=== PATIENT | male | born 1935 | race Caucasian/White ===

== ENCOUNTER 2018-05-25 11:40 | Outpatient (REF) | payer MEDICARE, BC, SELFPAY ==
[2018-05-25 20:10] LABS: HCT 44.9 % (40.0-50.0); HGB 14.5 g/dL (13.5-17.5); Mean Corp. HGB Concentration 32.3 g/dL (32.0-36.0); Mean Corpuscular Hemoglobin 30.3 pg (27.0-33.0); Mean Corpuscular Volume 93.9 fL (80-95); Platelet Count 203 x1000/uL (130-400); RBC 4.78 m/cumm (4.50-6.00); RBC Distribution Width 13.7 % (11.8-14.1); White Blood Cell Count 6.71 k/cumm (4.4-10.8)
[2018-05-25 20:18] LABS: COMMENT (LAB VIEW ONLY) 89.09 mg/dL; Microalb ug/mg Crea 5.7 ug/mg Cr
[2018-05-25 20:23] LABS: ALT 22 U/L (12-78); AST 19 U/L (15-37); Albumin 3.2 g/dL (3.4-5.0); Alkaline Phosphatase 85 U/L (46-116); Anion Gap 7.7 mmol/L (3-11); BUN 28 mg/dL (7-18); CO2 30.3 mmol/L (21.0-32.0); CREATININE 1.22 mg/dL (0.70-1.30); Calcium 8.2 mg/dL (8.5-10.1); Chloride 102 mmol/L (98-107); Estimated GFR 57.15 (mL/min/1.73m2); Glucose 152 mg/dL (70-100); Potassium 3.9 mmol/L (3.5-5.1); Sodium 140 mmol/L (136-145); TSH 1.06 uIU/mL (0.358-3.74); Total Protein 6.6 g/dL (6.4-8.2)
[2018-05-25 20:54] LABS: Bilirubin, Total 0.6 mg/dL (0.2-1.0)
== END 2018-05-25 11:41 ==
LOC: NCHCN 11:40
PROVIDERS: PCP Internal Medicine; Visit Provider Internal Medicine
DX: E11.9 Type 2 diabetes mellitus without complications (principal); R63.4 Abnormal weight loss; I48.91 Unspecified atrial fibrillation; M10.9 Gout, unspecified
CPT/HCPCS: 80053; 85027; 82043; 82570; 84443

== ENCOUNTER 2019-06-07 15:25 | Outpatient (REF) | payer MEDICARE, BC, SELFPAY ==
[2019-06-07 19:10] LABS: HCT 46.6 % (40.0-50.0); HGB 14.5 g/dL (13.5-17.5); Mean Corp. HGB Concentration 31.1 g/dL (32.0-36.0); Mean Corpuscular Hemoglobin 28.2 pg (27.0-33.0); Mean Corpuscular Volume 90.7 fL (80-95); Platelet Count 175 x1000/uL (130-400); RBC 5.14 m/cumm (4.50-6.00); RBC Distribution Width 14.9 % (11.8-14.1); White Blood Cell Count 6.59 k/cumm (4.4-10.8)
[2019-06-07 19:24] LABS: Anion Gap 7.6 mmol/L (3-11); BUN 22 mg/dL (7-18); CO2 28.4 mmol/L (21.0-32.0); CREATININE 1.05 mg/dL (0.70-1.30); Calcium 8.5 mg/dL (8.5-10.1); Chloride 108 mmol/L (98-107); Creatine Kinase 233 U/L (39-308); Glucose 109 mg/dL (70-100); Potassium 4.4 mmol/L (3.5-5.1); Sodium 144 mmol/L (136-145); TSH 1.23 uIU/mL (0.36-3.74); Uric Acid 2.9 mg/dL (3.5-7.2)
== END 2019-06-07 15:45 ==
LOC: NCHCN 15:25
PROVIDERS: PCP Internal Medicine; Visit Provider Internal Medicine
DX: E11.9 Type 2 diabetes mellitus without complications (principal); I48.91 Unspecified atrial fibrillation; I83.009 Varicose veins of unspecified lower extremity with ulcer of unspecified site; E66.9 Obesity, unspecified
CPT/HCPCS: 80048; 82550; 85027; 84443; 84550

== ENCOUNTER 2021-04-01 13:34 | Outpatient (REF) | payer MEDICARE, BC, SELFPAY ==
[2021-04-01 18:32] LABS: HGB 14.9 g/dL (13.5-17.5); MCH 30.2 pg (27.0-33.0); MCHC 32.4 % (32.0-36.0); MCV 93.1 fL (80-95); MPV 9.8 fL (8.0-11.0); Platelet Count 158 10^3/uL (130-400); RBC 4.94 10^6/uL (4.36-5.78); RDW 13.1 % (11.8-14.1); RDW-SD 44.8 fL; WBC 6.76 10^3/uL (4.4-10.8)
== END 2021-04-01 13:35 | disposition home or self-care (01) ==
LOC: NCHCN 13:34
PROVIDERS: PCP Internal Medicine; Visit Provider Internal Medicine
DX: K27.9 Peptic ulcer, site unspecified, unspecified as acute or chronic, without hemorrhage or perforation (principal)
CPT/HCPCS: 85027

== ENCOUNTER 2022-05-18 18:11 | Outpatient (REF) | payer MEDICARE, BC, SELFPAY ==
[2022-05-18 20:16] LABS: HCT 48.7 % (40.0-50.0); HGB 15.5 g/dL (13.5-17.5); MCH 29.1 pg (27.0-33.0); MCHC 31.8 % (32.0-36.0); MCV 91 fL (80-95); MPV 10.5 fL (8.0-11.0); Platelet Count 154 10^3/uL (130-400); RBC 5.33 10^6/uL (4.36-5.78); RDW 13.7 % (11.8-14.1); RDW-SD 46.2 fL; WBC 7.33 10^3/uL (4.4-10.8)
[2022-05-18 20:31] LABS: ALT 20 U/L (16-63); AST 20 U/L (15-37); Albumin 3.5 g/dL (3.4-5.0); Alkaline Phosphatase 100 U/L (46-116); Anion Gap 4.6 mmol/L (3-11); BUN 22 mg/dL (7-18); Bilirubin, Total 0.6 mg/dL (0.2-1.0); CO2 31.4 mmol/L (21.0-32.0); CREATININE 1.1 mg/dL (0.70-1.30); Calcium 8.6 mg/dL (8.5-10.1); Chloride 105 mmol/L (98-107); Glucose 131 mg/dL (74-106); NT-proBNP 1164 pg/mL (<300); Potassium 3.9 mmol/L (3.5-5.1); Sodium 141 mmol/L (136-145); TSH 1.35 uIU/mL (0.36-3.74); Total Protein 7.4 g/dL (6.4-8.2)
== END 2022-05-18 18:12 | disposition home or self-care (01) ==
LOC: NCHCN 18:11
PROVIDERS: PCP Internal Medicine; Visit Provider Internal Medicine
DX: E11.8 Type 2 diabetes mellitus with unspecified complications (principal); I10 Essential (primary) hypertension; R06.2 Wheezing; G47.33 Obstructive sleep apnea (adult) (pediatric); Z79.4 Long term (current) use of insulin
CPT/HCPCS: 80053; 85027; 83880; 84443

== ENCOUNTER 2023-05-29 13:39 | Outpatient (REF) | payer MEDICARE, BC, SELFPAY ==
--- OUTSIDE RECORDS SUMMARY | 2023-05-29 13:42 | XMS_ITS | Continuity of Care Document ---
Author Name Unknown Organization [facility] Address [address] [place] [address] Care Team Providers Care Fire Support Specialist Name Role Phone [place] HCDenilson Primary Care Physician Encounter [facility] [id number] Date(s): 03/26/23 - 03/26/[address] [address] Encounter Diagnosis Dizziness(Discharge Diagnosis) - 03/26/23 Discharge Disposition: Home or Self Care Attending Physician: Daphney Og MD Admitting Physician: Daphney Og MD Referring Physician: Daphney Og MD Allergies, Adverse Reactions, Alerts Substance Reaction Severity Status codeine Unknown Active bacitracin Skin rash Moderate Active penicillins Unknown Active Medications allopurinol 200 mg oral tablet 200 mg = 1 tab, Oral, Daily, # 30 tab, 0 Refill(s) Start Date: 03/26/23 Status: Ordered atenolol 25 mg oral tablet 25 mg = 1 tab, Oral, Daily, # 30 tab, 0 Refill(s) Start Date: 03/26/23 Status: Ordered atorvastatin 20 mg oral tablet 20 mg = 1 tab, Oral, Daily, # 90 tab, 0 Refill(s) Start Date: 03/26/23 Status: Ordered Basaglar KwikPen 0 Refill(s) Start Date: 03/26/23 Status: Ordered Dexilant 60 mg oral delayed release capsule 60 mg = 1 cap, Oral, Daily, # 30 cap, 0 Refill(s) Start Date: 03/26/23 Status: Ordered finasteride 5 mg oral tablet 5 mg = 1 tab, Oral, Daily, # 30 tab, 0 Refill(s) Start Date: 03/26/23 Status: Ordered losartan 100 mg oral tablet 100 mg = 1 tab, Oral, Daily, # 90 tab, 0 Refill(s) Start Date: 03/26/23 Status: Ordered meclizine 25 mg oral tablet 25 mg = 1 tab, Oral, every 6 hr, PRN as needed for dizziness, X 14 days, # 30 tab, 1 Refill(s), 04/23/23 15:54:00 EDT, Pharmacy: [id number], 175.26, cm, 03/26/23 14:46:00 EDT, Height/LengthDosing, 106, kg, 03/26/23 14:46:00 EDT, Weight Dosing Start Date: 03/26/23 Stop Date: 04/23/23 Status: Ordered NovoLOG 100 units/mL injectable solution 0 Refill(s) Start Date: 03/26/23 Status: Ordered triamcinolone 0.025% topical cream 1 barak, Topical, BID, X 14 days, # 15 g, 0 Refill(s), 04/09/23 14:50:00 EDT Start Date: 03/26/23 Stop Date: 04/09/23 Status: Ordered Xarelto 2.5 mg oral tablet 2.5 mg = 1 tab, Oral, BID, 0 Refill(s) Start Date: 03/26/23 Status: Ordered Mental Status 03/26/23 Eye Opening Response [place] Spontaneous ly Best Verbal Response Emily Oriented Best Motor Response Emily Obeys comman ds Emily Coma Score 15 Results Laboratory List Name Date Automated Diff 03/26/23 CBC w/ Diff 03/26/23 Comprehensive Metabolic Panel 03/26/23 Most recent to oldest [Reference Range]: 1 WBC [5.0-10.0 x10^3/mcL] 7.2 x10^3/mcL (03/26/23 2:56 PM) RBC [4.6-6.0 x10^6/mcL] 5.0 x10^6/mcL (03/26/23 2:56 PM) Neutro Auto [40.0-75.0 %] 60.5 % (03/26/23 2:56 PM) Lymph Auto [20.0-50.0 %] 26.9 % (03/26/23 2:56 PM) [place] Auto [2.0-15.0 %] 9.5 % (03/26/23 2:56 PM) Basophil Auto [0.0-1.0 %] 0.8 % (03/26/23 2:56 PM) BUN [7-18 mg/dL] 19 mg/dL *HI* (03/26/23 2:56 PM) Glucose Level [74-106 mg/dL] 173 mg/dL *HI* (03/26/23 2:56 PM) Potassium Level [3.5-5.1 mmol/L] 4.0 mmo l/L (03/26/23 2:56 PM) MCV [80.0-96.0 fL] 94.0 fL (03/26/23 2:56 PM) AST [15-37 unit/L] 17 unit/L (03/26/23 2:56 PM) ALT [16-63 unit/L] 19 unit/L (03/26/23 2:56 PM) MCHC [31.0-35.0 g/dL] 32.7 g/dL (03/26/23 2:56 PM) Sodium Level [136-145 mmol/L] 142 mmol/L (03/26/23 2:56 PM) Hct [41.0-51.0 %] 47.1 % (03/26/23 2:56 PM) Calcium Level [8.5-10.1 mg/dL] 8.8 mg/dL (03/26/23 2:56 PM) Albumin Level [3.4-5.0 g/dL] 3.5 g/dL (03/26/23 2:56 PM) Protein Total [6.4-8.2 g/dL] 7.7 g/dL (03/26/23 2:56 PM) MCH [26.0-32.0 pg] 30.7 pg (03/26/23 2:56 PM) Neutro Absolute 4.4 x10^3/mcL *NA* (03/26/23 2:56 PM) Bilirubin Total [0.2-1.0 mg/dL] 0.7 mg/d L (03/26/23 2:56 PM) Hgb [14.0-18.0 g/dL] 15.4 g/dL (03/26/23 2:56 PM) Alk Phos [46-146 unit/L] 103 unit/L (03/26/23 2:56 PM) Platelets [130-450 x10^3/mcL] 141 x10^3/ mcL (03/26/23 2:56 PM) CO2 [21-32 mmol/L] 31 mmol/L (03/26/23 2:56 PM) eGFR Non-AA [>=60] 65 (03/26/23 2:56 PM) eGFR AA [>=60] 65 (03/26/23 2:56 PM) Chloride Level [98-107 mmol/L] 105 mmol/ L (03/26/23 2:56 PM) RDW-CV [11.5-14.5 %] 13.7 % (03/26/23 2:56 PM) Imm Gran Auto [0.0-0.9 %] 0.6 % (03/26/23 2:56 PM) Slide Review Not Indicated (03/26/23 2:56 PM) Creatinine Level [0.70-1.30 mg/dL] 1.11 mg/dL (03/26/23 2:56 PM) Eos, Auto [1.0-6.0 %] 1.7 % (03/26/23 2:56 PM) Vital Signs Most recent to oldest [Reference Range]: 1 2 3 Temperature Temporal Artery [36-38 Deg C] 36.2 Deg C (03/26/23 2:37 PM) Peripheral Pulse Rate [60-100 bpm] 80 bpm (03/26/23 3:48 PM) 69 bpm (03/26/23 3:25 PM) 70 bpm (03/26/23 2:37 PM) Heart Rate Monitored [60-100 bpm] 56 bpm *LOW* (03/26/23 3:48 PM) 69 bpm (03/26/23 3:25 PM) 68 bpm (03/26/23 3:06 PM) Respiratory Rate [12-24 br/min] 12 br/min (03/26/23 3:48 PM) 18 br/min (03/26/23 3:25 PM) 10 br/min *LOW* (03/26/23 3:06 PM) Blood Pressure [90-140/60-90 mmHg] 146/80mmHg *HI* (03/26/23 3:48 PM) 145/82mmHg *HI* (03/26/23 3:25 PM) 163/87mmHg *HI* (03/26/23 3:06 PM) Weight 106.00 kg (03/26/23 2:37 PM) Weight Dosing 106.00 kg (03/26/23 2:46 PM) Height 175.260 cm (03/26/23 2:37 PM) Height/Length Dosing 175.260 cm (03/26/23 2:46 PM) Body Mass Index 35.000 kg/m2 (03/26/23 2:37 PM) Social History Social History Type Response Tobacco Never tobacco user T obacco Use:. Sex Male Hospital Discharge Instructions Patient Education 03/26/2023 14:55:07 Dizziness Dizziness Dizziness is a common problem. It is a feeling of unsteadiness or light- headedness. You may feel like you are about to faint. Dizziness can lead to injury if you stumble or fall. Anyone can become dizzy, but dizziness is more common in older adults. This condition can be caused by a number of things, including medicines, dehydration, or illness. Follow these instructions at home: Eating and drinking ??? Drink enough fluid to keep your urine pale yellow. This helps to keep you from becoming dehydrated. Try to drink more clear fluids, such as water. ??? Do not drink alcohol. ??? Limit your caffeine intake if told to do so by your health care provider. Check ingredients andnutrition facts to see if a food or beverage contains caffeine. ??? Limit your salt (sodium) intake if told to do so by your health care provider. Check ingredients and nutrition facts to see if a food or beverage contains sodium. Activity ??? Avoid making quick movements. ??? Rise slowly from chairs and steady yourself until you feel okay. ??? In the morning, first sit up on the side of the bed. When you feel okay, stand slowly while youhold onto something until you know that your balance is good. ??? If you need to draw machine operator one place for a long time, move your legs often. Tighten and relax the muscles in your legs while you are standing. ??? Do not drive or use machinery if you feel dizzy. ??? Avoid bending down if you feel dizzy. Place items in your home so that they are easy for you toreach without leaning over. Lifestyle ??? Do not use any products that contain nicotine or tobacco. These products include cigarettes, chewing tobacco, and vaping devices, such as e-cigarettes. If you need help quitting, ask your health care provider. ??? Try to reduce your stress level by using methods such as yoga or meditation. Talk with your health care provider if you need help to manage your stress. General instructions ??? Watch your dizziness for any changes. ??? Take szat-osv-psuxpty and prescription medicines only as told by your health care provider. Talk with your health care provider if you think that your dizziness is caused by a medicine that you are taking. ??? Tell a friend or a family member that you are feeling dizzy. If he or she notices any changes in your behavior, have this person call your health care provider. ??? Keep all follow-up visits. This is important. Contact a health care provider if: ??? Your dizziness does not go away or you have new symptoms. ??? Your dizziness or light-headedness gets worse. ??? You feel nauseous. ??? You have reduced hearing. ??? You have a fever. ??? You have neck pain or a stiff neck. ??? Your dizziness leads to an injury or a fall. Get help right away if: ??? You vomit or have diarrhea and are unable to eat or drink anything. ??? You have problems talking, walking, swallowing, or using your arms, hands, or legs. ??? You feel generally weak. ??? You have any bleeding. ??? You are not thinking clearly or you have trouble forming sentences. It may take a friend or family member to notice this. ??? You have chest pain, abdominal pain, shortness of breath, or sweating. ??? Your vision changes or you develop a severe headache. These symptoms may represent a serious problem that is an emergency. Do not wait to see if the symptoms will go away. Get medical help right away. Call your local emergency services (911 in the [place] Do not drive yourself to the hospital. Summary ??? Dizziness is a feeling of unsteadiness or light-headedness. This condition can be caused by a number of things, including medicines, dehydration, or illness. ??? Anyone can become dizzy, but dizziness is more common in older adults. ??? Drink enough fluid to keep your urine pale yellow. Do not drink alcohol. ??? Avoid making quick movements if you feel dizzy. Monitor your dizziness for any changes. This information is not intended to replace advice given to you by your health care provider. Make sure you discuss any questions you have with your health care provider. Document Revised: 09/13/2021 Document Reviewed: 09/13/2021 Elsevier Patient Education ?? 2021 Only-apartments. Follow Up Care 03/26/2023 14:37:20 With:Follow up with primary care provider Address: When:1 to 2 weeks Physician Emergency department Note * Daphney Og MD: PERFORM Event Display: ED Note Physician Authored Date: [id number] MACARIO NAYLOR :1935 Age:87 years Sex:Male Visit Date:03/26/2023 Primary Care Physician: [facility], Denilson Iniguez MD Basic Information Time Seen: Daphney Og MD / 03/26/2023 14:41 Chief Complaint Pt sttaes he has had dizziness for a week. ??States he thought it was better fri and sat but is uchworse today History Of Present Illness: Patient had dizziness that started about 9 days ago went away on Monday and Monday??but now todayis worse??patient was thinking he had an inner ear infection.?? No ear nose or throat pain no chestpain no cough no nausea no vomiting no extremity edema no skin rashes no headache??no fever no chills. 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 Patient has a history of atrial fibrillation and is on Xarelto. 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. Review of Systems: see hpi for ros Physical Exam Vitals & Measurements T:??36.2?C ??(Temporal Artery)?? HR:??80??(Peripheral)?? HR:??56??(Monitored)?? RR:??12?? BP:??146/80?? SpO2:??95%?? HT:??175.260??cm?? WT:??106.00??kg?? BMI:??35.000?? Pain Score:??0?? O2 Therapy:??Room air?? General: Alert and oriented, well nourished,?No??acute distress Eye: PER?Normal??conjunctiva,??No??scleral icterus HENT: Normocephalic,??nontraumatic??Normal hearing Neck: Supple, non-tender,??No??lymphadenopathy Lungs: Clear to auscultation,?Non-labored?? respiration Heart:?Normal?? rate,?Regular??rhythm,?No??murmur,?No??gallop,?No??edema Chest: wall excursion wnl no abnormal movements no obvious deformities Musculoskeletal:?Normal?? range of motion and strength,?No??tenderness,?No??swelling Skin: Skin is warm, dry and pink,?No??rashes,?No??lesions Neurologic: Awake, alert and oriented X4 Psychiatric: Cooperative, appropriate mood and affect Mental status/cognitive: Awake alert, answers questions appropriately alert to self, time and month, able to recall current events Cranial nerves CN II-vision grossly intact, PERRL CN III, IV, -EOMI CN V-V1-3 dermatomes intact to light touch CN VII-no facial asymmetry CN IX, X-uvula midline CN XI- head turning equally bilaterally against resistance CN XII-normal tongue movement, no atrophy, no fasciculations, no weakness Motor: Normal muscle bulk, normal tone, no pronator drift. Strength 5/5 throughout all muscle groups in all 4 extremities. Able to move all extremities without difficulty Sensory: Sensation grossly intact to light touch in all 4 extremities Gait: Able to stand without assistance, normal gait Cerebellar: No nystagmus, normal [id number] and finger to finger test (no dysmetria), normal rapid alternating movements (no dysdiadochokenesia, normal gait Medical Decision Making: For MDM please see under assessment and plan Procedure No Qualifying Data Reexamination/Reevaluation Prior to discharge patient's Romberg was negative Assessment/Plan 1.??Dizziness??R42 Patient reported feeling much improved??prior to discharge.?? Patient is sent home with a prescription for meclizine 25 mg every 6 hours as needed.?? Patient is given return precautions if he worsenshe will return to the emergency department??or see primary care provider in follow-up. Ordered: meclizine 25 mg oral tablet, 25 mg = 1 tab, Oral, every 6 hr, PRN as needed for dizziness, X 14 days, # 30 tab, 1 Refill(s), 04/23/23 15:54:00 EDT, Pharmacy: [id number], 175.26, cm, 03/26/23 14:46:00 EDT, Height/Length Dosing, 106, kg, 03/26/23 14:46:00 EDT, Weight Dosing Discharge Patient, 03/26/23 15:54:00 EDT, Home Independently, Constant Indicator ?? Patient Education Dizziness Follow Up With When Contact Information Follow up with primary care provider Within 1 to 2 weeks Additional Instructions: Medication Reconciliation New Prescription meclizine (meclizine 25 mg oral tablet)1 tab Oral (given by mouth) every 6 hours as needed as needed for dizziness for 14 Days. Refills: 1. ?? Unchanged allopurinol (allopurinol 200 mg oral tablet)1 tab Oral (given by mouth) every day. ?? atenolol (atenolol 25 mg oral tablet)1 tab Oral (given by mouth) every day. ?? atorvastatin (atorvastatin 20 mg oral tablet)1 tab Oral (given by mouth) every day. ?? dexlansoprazole (Dexilant 60 mg oral delayed release capsule)1 Capsules Oral (given by mouth) everyday. ?? finasteride (finasteride 5 mg oral tablet)1 tab Oral (given by mouth) every day. ?? insulin aspart (NovoLOG 100 units/mL injectable solution) ?? insulin glargine (Basaglar KwikPen) ?? losartan (losartan 100 mg oral tablet)1 tab Oral (given by mouth) every day. ?? rivaroxaban (Xarelto 2.5 mg oral tablet)1 tab Oral (given by mouth) 2 times a day. ?? triamcinolone topical (triamcinolone 0.025% topical cream)1 Application Topical (on the skin) 2 times a day for 14 Days. Problem List/Past Medical History Ongoing No qualifying data Historical No qualifying data Medication Administration Given meclizine, 25 mg, Oral Allergies bacitracin??(Skin rash) codeine penicillins Social History Electronic Cigarette/Vaping Electronic Cigarette Use: Never. Tobacco Never tobacco user Tobacco Use:. Lab Results CBC and Differential?? LATEST RESULTS?? WBC?? 03/26/23 14:56?? 7.2?? RBC?? 03/26/23 14:56?? 5.0?? Hgb?? 03/26/23 14:56?? 15.4?? Hct?? 03/26/23 14:56?? 47.1?? MCV?? 03/26/23 14:56?? 94.0?? MCH?? 03/26/23 14:56?? 30.7?? MCHC?? 03/26/23 14:56?? 32.7?? RDW-CV?? 03/26/23 14:56?? 13.7?? Platelets?? 03/26/23 14:56?? 141?? Neutro Auto?? 03/26/23 14:56?? 60.5?? Lymph Auto?? 03/26/23 14:56?? 26.9?? [place] Auto?? 03/26/23 14:56?? 9.5?? Eos, Auto?? 03/26/23 14:56?? 1.7?? Basophil Auto?? 03/26/23 14:56?? 0.8?? Imm Gran Auto?? 03/26/23 14:56?? 0.6?? Neutro Absolute?? 03/26/23 14:56?? 4.4?? Slide Review?? 03/26/23 14:56?? Not Indicated? Routine Chemistry?? LATEST RESULTS?? Sodium Level?? 03/26/23 14:56?? 142?? Potassium Level?? 03/26/23 14:56?? 4.0?? Chloride Level?? 03/26/23 14:56?? 105?? CO2?? 03/26/23 14:56?? 31?? Alk Phos?? 03/26/23 14:56?? 103?? AST?? 03/26/23 14:56?? 17?? ALT?? 03/26/23 14:56?? 19?? BUN?? 03/26/23 14:56?? 19 ??High?? Glucose Level?? 03/26/23 14:56?? 173 ??High?? Creatinine Level?? 03/26/23 14:56?? 1.11?? eGFR AA?? 03/26/23 14:56?? 65?? eGFR Non-AA?? 03/26/23 14:56?? 65?? Calcium Level?? 03/26/23 14:56?? 8.8?? Protein Total?? 03/26/23 14:56?? 7.7?? Albumin Level?? 03/26/23 14:56?? 3.5?? Bilirubin Total?? 03/26/23 14:56?? 0.7? Electronically Signed on 03/26/23 03:56 PM Daphney Og MD Emergency department Discharge instructions * Daphney Og MD: PERFORM Event Display: ED Discharge Information Authored Date: [id number] MACARIO NAYLOR :1935 Age:87 years Sex:Male Visit Date:03/26/2023 Primary Care Physician: Denilson Lemon MD Discharge Instructions We would like to thank you for allowing us to assist you with your healthcare needs. The following includes patient education materials and information regarding your injury/illness. Diagnosis from Today's Visit Dizziness Discharge Vitals Temperature??(Temporal Artery) 97.2 ??F (36.2 ??C) Heart Rate??(Peripheral) 80 Heart Rate??(Monitored) 56 Respiratory Rate?? 12 Blood Pressure?? 146/80?? Height?? 69.00 in (175.260 cm) Weight?? 233.73 lb (106.00 kg) BMI?? 35.000 Allergies bacitracin??(Skin rash) codeine penicillins What to Do Next Instructions from Your Care Team Take meclizine 25 mg every 6 hours as needed.?? If you worsen or do not improve return to the emergency department or see your primary care provider. You Need to Schedule the Following Appointments Follow Up with??Follow up with primary care provider When:??Within 1 to 2 weeks You were treated today on an emergency basis; it may be mariee to contact your primary care provider to notify them of your visit today. You may have been referred to your regular doctor or a specialist, please follow up as instructed. If your condition worsens or you can't get in to see the doctor, contact the Emergency Department. Medications What How Much When Why Instructions Next Dose New meclizine (meclizine 25 mg oral tablet) 1 tab Oral (given by mouth) Every 6 hours as needed for as needed for dizziness Dizziness Duration: 14 Days Refills: 1 Pickup at [id number] Unchanged allopurinol (allopurinol 200 mg oral tablet) 1 tab Oral (given by mouth) Every day Unchanged atenolol (atenolol 25 mg oral tablet) 1 tab Oral (given by mouth) Every day Unchanged atorvastatin (atorvastatin 20 mg oral tablet) 1 tab Oral (given by mouth) Every day Unchanged dexlansoprazole (Dexilant 60 mg oral delayed release capsule) 1 Capsules Oral (given by mouth) Every day Unchanged finasteride (finasteride 5 mg oral tablet) 1 tab Oral (given by mouth) Every day Unchanged insulin aspart (NovoLOG 100 units/ mL injectable solution) Unchanged insulin glargine (Basaglar KwikPen) Unchanged losartan (losartan 100 mg oral tablet) 1 tab Oral (given by mouth) Every day Unchanged rivaroxaban (Xarelto 2.5 mg oral tablet) 1 tab Oral (given by mouth) 2 times a day Unchanged triamcinolone topical (triamcinolone 0.025% topical cream) 1 Application Topical (on the skin) 2 times a day Duration: 14 Days Pharmacy Information [id number]: [address], [place] [id number] [phone] Education Materials Dizziness Dizziness is a common problem. It is a feeling of unsteadiness or light- headedness. You may feel like you are about to faint. Dizziness can lead to injury if you stumble or fall. Anyone can become dizzy, but dizziness is more common in older adults. This condition can be caused by a number of things, including medicines, dehydration, or illness. Follow these instructions at home: Eating and drinking ? Drink enough fluid to keep your urine pale yellow. This helps to keep you from becoming dehydrated.Try to drink more clear fluids, such as water. ? Do not drink alcohol. ? Limit your caffeine intake if told to do so by your health care provider. Check ingredients and nutrition facts to see if a food or beverage contains caffeine. ? Limit your salt (sodium) intake if told to do so by your health care provider. Check ingredients and nutrition facts to see if a food or beverage contains sodium. Activity ? Avoid making quick movements. ? Rise slowly from chairs and steady yourself until you feel okay. ? In the morning, first sit up on the side of the bed. When you feel okay, stand slowly while you hold onto something until you know that your balance is good. ? If you need to draw machine operator one place for a long time, move your legs often. Tighten and relax the muscles in your legs while you are standing. ? Do not drive or use machinery if you feel dizzy. ? Avoid bending down if you feel dizzy. Place items in your home so that they are easy for you to reach without leaning over. Lifestyle ? Do not use any products that contain nicotine or tobacco. These products include cigarettes, chewing tobacco, and vaping devices, such as e-cigarettes. If you need help quitting, ask your health careprovider. ? Try to reduce your stress level by using methods such as yoga or meditation. Talk with your health care provider if you need help to manage your stress. General instructions ? Watch your dizziness for any changes. ? Take ncct-eky-ouunuvw and prescription medicines only as told by your health care provider. Talk with your health care provider if you think that your dizziness is caused by a medicine that you are taking. ? Tell a friend or a family member that you are feeling dizzy. If he or she notices any changes in your behavior, have this person call your health care provider. ? Keep all follow-up visits. This is important. Contact a health care provider if: ? Your dizziness does not go away or you have new symptoms. ? Your dizziness or light-headedness gets worse. ? You feel nauseous. ? You have reduced hearing. ? You have a fever. ? You have neck pain or a stiff neck. ? Your dizziness leads to an injury or a fall. Get help right away if: ? You vomit or have diarrhea and are unable to eat or drink anything. ? You have problems talking, walking, swallowing, or using your arms, hands, or legs. ? You feel generally weak. ? You have any bleeding. ? You are not thinking clearly or you have trouble forming sentences. It may take a friend or family member to notice this. ? You have chest pain, abdominal pain, shortness of breath, or sweating. ? Your vision changes or you develop a severe headache. These symptoms may represent a serious problem that is an emergency. Do not wait to see if the symptoms will go away. Get medical help right away. Call your local emergency services (911 in the [place] Do not drive yourself to the hospital. Summary ? Dizziness is a feeling of unsteadiness or light-headedness. This condition can be caused by a number of things, including medicines, dehydration, or illness. ? Anyone can become dizzy, but dizziness is more common in older adults. ? Drink enough fluid to keep your urine pale yellow. Do not drink alcohol. ? Avoid making quick movements if you feel dizzy. Monitor your dizziness for any changes. This information is not intended to replace advice given to you by your health care provider. Make sure you discuss any questions you have with your health care provider. Document Revised: 09/13/2021 Document Reviewed: 09/13/2021 Elsevier Patient Education ?? 2021 [employer] Tests Performed Medications and Immunizations Administered Given meclizine, 25 mg, Oral Lab Test Name Test Result Date/Time WBC 7.2 x10^3/mcL 03/26/2023 14:56 EDT RBC 5.0 x10^6/mcL 03/26/2023 14:56 EDT Hgb 15.4 g/dL 03/26/2023 14:56 EDT Hct 47.1 % 03/26/2023 14:56 EDT MCV 94.0 fL 03/26/2023 14:56 EDT MCH 30.7 pg 03/26/2023 14:56 EDT MCHC 32.7 g/dL 03/26/2023 14:56 EDT RDW-CV 13.7 % 03/26/2023 14:56 EDT Platelets 141 x10^3/mcL 03/26/2023 14:56 EDT Neutro Auto 60.5 % 03/26/2023 14:56 EDT Lymph Auto 26.9 % 03/26/2023 14:56 EDT [place] Auto 9.5 % 03/26/2023 14:56 EDT Eos, Auto 1.7 % 03/26/2023 14:56 EDT Basophil Auto 0.8 % 03/26/2023 14:56 EDT Imm Gran Auto 0.6 % 03/26/2023 14:56 EDT Neutro Absolute 4.4 x10^3/mcL 03/26/2023 14:56 EDT Slide Review Not Indicated 03/26/2023 14:56 EDT Sodium Level 142 mmol/L 03/26/2023 14:56 EDT Potassium Level 4.0 mmol/L 03/26/2023 14:56 EDT Chloride Level 105 mmol/L 03/26/2023 14:56 EDT CO2 31 mmol/L 03/26/2023 14:56 EDT Alk Phos 103 unit/L 03/26/2023 14:56 EDT AST 17 unit/L 03/26/2023 14:56 EDT ALT 19 unit/L 03/26/2023 14:56 EDT BUN 19 mg/dL 03/26/2023 14:56 EDT Glucose Level 173 mg/dL 03/26/2023 14:56 EDT Creatinine Level 1.11 mg/dL 03/26/2023 14:56 EDT eGFR AA 65 03/26/2023 14:56 EDT eGFR Non-AA 65 03/26/2023 14:56 EDT Calcium Level 8.8 mg/dL 03/26/2023 14:56 EDT Protein Total 7.7 g/dL 03/26/2023 14:56 EDT Albumin Level 3.5 g/dL 03/26/2023 14:56 EDT Bilirubin Total 0.7 mg/dL 03/26/2023 14:56 EDT Patient/Neonatal Critical Care Nurse Signature Patient Name:MACARIO NAYLOR I have received this information and my questions have been answered. Patient/Neonatal Critical Care Nurse Name: Patient/Neonatal Critical Care Nurse Signature: Relationship to Patient: Witness Name/Signature: Date: Electronically Signed on: 03/26/2023 15:55 EDTSigned by:AMS Emergency department Note * Laurel Salmon: PERFORM Event Display: ED Notes Authored Date: [id number] Patient Care team information Care Team Personnel Name: Denilson Lemon MD Position: No Access Member Role: Informed Provider Address: Address: [id number] [place] [address] Name: Char Dowling Position: Nurse Member Role: ED Nurse Name: Daphney Og MD Position: Physician Member Role: Referring Physician Address: Address: [address] [place] [address] Care Team Related Persons Name: RAJ COATES
[2023-05-29 19:17] LABS: HCT 49.8 % (40.0-50.0); MCH 30.5 pg (27.0-33.0); MCHC 32.1 % (32.0-36.0); MCV 95 fL (80-95); MPV 10.8 fL (8.0-11.0); Platelet Count 158 10^3/uL (130-400); RBC 5.25 10^6/uL (4.36-5.78); RDW 13.6 % (11.8-14.1); RDW-SD 47.3 fL; WBC 7.59 10^3/uL (4.4-10.8)
[2023-05-29 19:53] LABS: Calculated LDL 51 mg/dL (<100); Cholesterol 136 mg/dL (<200); HDL Cholesterol 55 mg/dL (40-60); Triglyceride 154 mg/dL (<150)
[2023-05-29 20:11] LABS: Creatine Kinase 63 U/L (39-308)
[2023-05-30 10:24] LABS: Anion Gap 10.1 mmol/L (3-11); BUN 21 mg/dL (7-18); CO2 26.9 mmol/L (21.0-32.0); CREATININE 1.1 mg/dL (0.70-1.30); Chloride 105 mmol/L (98-107); Estimated GFR 65.79 (mL/min/1.73m2); Glucose 94 mg/dL (74-106); Potassium 4.2 mmol/L (3.5-5.1); Sodium 142 mmol/L (136-145)
== END 2023-05-29 13:40 | disposition home or self-care (01) ==
LOC: NCHCN 13:39
PROVIDERS: PCP Internal Medicine; Visit Provider Internal Medicine
DX: E11.8 Type 2 diabetes mellitus with unspecified complications (principal); I65.23 Occlusion and stenosis of bilateral carotid arteries; K21.9 Gastro-esophageal reflux disease without esophagitis; I10 Essential (primary) hypertension
CPT/HCPCS: 80048; 80061; 82550; 85027

== ENCOUNTER 2024-02-15 15:12 | Outpatient (REF) | payer MEDICARE, BC, SELFPAY ==
[2024-02-15 18:58] LABS: HCT 49.1 % (40.0-50.0); HGB 15.7 g/dL (13.5-17.5); MCV 94 fL (80-95); MPV 10.4 fL (8.0-11.0); Platelet Count 158 10^3/uL (130-400); RBC 5.23 10^6/uL (4.36-5.78); RDW 13.8 % (11.8-14.1); RDW-SD 47.7 fL
[2024-02-15 19:23] LABS: ALT 32 U/L (16-63); Anion Gap 5.4 mmol/L (3-11); BUN 22 mg/dL (7-18); CO2 31.6 mmol/L (21.0-32.0); CREATININE 1.2 mg/dL (0.70-1.30); Calcium 9.1 mg/dL (8.5-10.1); Chloride 105 mmol/L (98-107); Creatine Kinase 54 U/L (39-308); Estimated GFR 58.89 (mL/min/1.73m2); Glucose 168 mg/dL (74-106); Potassium 5.1 mmol/L (3.5-5.1); Sodium 142 mmol/L (136-145); Uric Acid 3.6 mg/dL (3.5-7.2)
[2024-02-15 20:43] LABS: Calculated LDL 56 mg/dL (<100); Cholesterol 137 mg/dL (<200); HDL Cholesterol 64 mg/dL (40-60); Triglyceride 86 mg/dL (<150)
== END 2024-02-15 15:13 | disposition home or self-care (01) ==
LOC: NCHCN 15:12
PROVIDERS: PCP Internal Medicine; Visit Provider Internal Medicine
DX: I10 Essential (primary) hypertension (principal); M10.9 Gout, unspecified; E11.9 Type 2 diabetes mellitus without complications; Z79.4 Long term (current) use of insulin
CPT/HCPCS: 80048; 80061; 82550; 85027; 84460; 84550

== ENCOUNTER → 2024-02-19 10:35 | Outpatient (BNVA) | payer MEDICARE, BC, SELFPAY | PROVIDERS: PCP Internal Medicine; Referring Provider Internal Medicine; Visit Provider Podiatrist | DX: E11.51 Type 2 diabetes mellitus with diabetic peripheral angiopathy without gangrene (principal); I87.2 Venous insufficiency (chronic) (peripheral); B35.1 Tinea unguium; L60.3 Nail dystrophy; L84 Corns and callosities | CPT/HCPCS: 11721 ==

== ENCOUNTER → 2024-06-17 10:20 | Outpatient (BNVA) | payer MEDICARE, BC, SELFPAY | PROVIDERS: PCP Internal Medicine; Referring Provider Internal Medicine; Visit Provider Podiatrist | DX: E11.51 Type 2 diabetes mellitus with diabetic peripheral angiopathy without gangrene (principal); I87.2 Venous insufficiency (chronic) (peripheral); B35.1 Tinea unguium; L60.3 Nail dystrophy; L84 Corns and callosities | CPT/HCPCS: 11721 ==

== ENCOUNTER 2025-02-07 21:37 | Outpatient (REF) | payer MEDICARE, BC, SELFPAY ==
[2025-02-07 18:53] LABS: HCT 46.7 % (40.0-50.0); HGB 15.3 g/dL (13.5-17.5); MCH 30.7 pg (27.0-33.0); MCHC 32.8 % (32.0-36.0); MCV 94 fL (80-95); MPV 10.4 fL (8.0-11.0); Platelet Count 141 10^3/uL (130-400); RBC 4.99 10^6/uL (4.36-5.78); RDW 13.6 % (11.8-14.1); RDW-SD 46.2 fL; WBC 9.51 10^3/uL (4.4-10.8)
[2025-02-07 19:18] LABS: Anion Gap 6.4 mmol/L (3-11); BUN 20 mg/dL (7-18); CO2 29.6 mmol/L (21.0-32.0); CREATININE 1.2 mg/dL (0.70-1.30); Calcium 8.9 mg/dL (8.5-10.1); Calculated LDL 56 mg/dL (<100); Chloride 109 mmol/L (98-107); Cholesterol 132 mg/dL (<200); Estimated GFR 58.53 (mL/min/1.73m2); Glucose 117 mg/dL (74-106); HDL Cholesterol 63 mg/dL (>or=40); Potassium 4.4 mmol/L (3.5-5.1); Sodium 145 mmol/L (136-145); TSH 0.93 uIU/mL (0.36-3.74); Triglyceride 65 mg/dL (<150)
== END 2025-02-07 21:38 | disposition home or self-care (01) ==
LOC: NCHCN 21:37
PROVIDERS: PCP Internal Medicine; Visit Provider Internal Medicine
DX: E66.9 Obesity, unspecified (principal); R53.81 Other malaise
CPT/HCPCS: 80048; 80061; 85027; 84443